=== PATIENT | female | born 1975 | race Asian ===

== ENCOUNTER 2022-06-25 16:52 | Emergency (ER) | payer SELFPAY ==
[~2022-06-25] VITALS: Ht 152.4 cm; Wt 51.0 kg
[2022-06-25 17:11] VITALS: BP 137/78
[2022-06-25] MEDS ORDERED: IBUP-2029 MT (18:39)
== END 2022-06-25 19:01 | disposition home or self-care (01) ==
LOC: ER 17:15
DX: R68.89 Other general symptoms and signs (principal); G89.29 Other chronic pain; F41.9 Anxiety disorder, unspecified; V49.49XA Driver injured in collision with other motor vehicles in traffic accident, initial encounter; Y93.89 Activity, other specified; Y92.89 Other specified places as the place of occurrence of the external cause; Y99.8 Other external cause status; Z88.0 Allergy status to penicillin
CPT/HCPCS: 99281